=== PATIENT | female | born 2000 | race Caucasian/White ===

== ENCOUNTER 2020-09-11 15:46 | Outpatient (CLI) | payer OTHER | END 2020-09-11 15:47 | disposition home or self-care (01) | LOC: CSHMRI 15:46 | PROVIDERS: ATTEND Physician Assistant | DX: M54.41 Lumbago with sciatica, right side (principal); M47.816 Spondylosis without myelopathy or radiculopathy, lumbar region | CPT/HCPCS: 72148 ==